=== PATIENT | female | born 1975 | race Caucasian/White ===

== ENCOUNTER 2022-09-23 06:14 | Emergency (ER) | payer OTHER ==
[2022-09-23] MEDS ORDERED: ONDANSETRON 4 MG/2 ML VIAL IVPB ONE (06:50)
[2022-09-23] MEDS ORDERED: SODIUM CHLORIDE 1,000 ML IV ONE (06:50)
[2022-09-23 07:20] VITALS: BMI 17.2
[2022-09-23 07:34] LABS: HEMOGLOBIN 12.4 G/dL (10.7-15.3); MCH 26.8 pg (25.7-33.7); MCHC 33.5 g/dl (32.0-36.0); MEAN CELL VOLUME 80.1 fl (80-96); MEAN PLT VOLUME 8.6 fl (7.5-11.1); PLATELET COUNT 194.2 10^3/uL (134-434); RBC 4.62 10^6/uL (3.60-5.2); RDW 15.5 % (11.6-15.6); WHITE BLOOD COUNT 10.4 10^3/uL (4.0-10.8)
[2022-09-23 07:40] LABS: ALBUMIN 4.4 g/dl (3.4-5.0); BILIRUBIN,TOTAL 1.1 mg/dl (0.2-1); CREATININE 0.7 mg/dl (0.55-1.3); TOT PROT 7.1 g/dl (6.4-8.2)
[2022-09-23] MEDS ORDERED: FAMOTIDINE 20 MG/50 ML IVPB 20 MG/50 ML MG IVPB ONE ×2 (08:58→09:03)
[2022-09-23] MEDS ORDERED: METOCLOPRAMIDE HCL INJECTION 10 MG/2 ML VIAL IVPUSH ONE (08:59)
[2022-09-23] MEDS ORDERED: ACETAMINOPHEN 325 MG TABLET (FP) PO ONE (08:59)
[2022-09-23] MEDS ORDERED: ACETAMINOPHEN 325 MG TABLET (FP) ONE (09:03)
[2022-09-23] MEDS ORDERED: METOCLOPRAMIDE HCL INJECTION 10 MG/2 ML VIAL ONE (09:03)
[2022-09-23 11:51] VITALS: BP 101/63; PULSE 91; RESP 16; TEMP 99.3
== END 2022-09-23 12:30 | disposition home or self-care (01) ==
LOC: FER 06:14
PROC: 3E033GC Introduction of Other Therapeutic Substance into Peripheral Vein, Percutaneous Approach (ICD-10-PCS; principal; 2022-09-23)
PROC: 3E033GC Introduction of Other Therapeutic Substance into Peripheral Vein, Percutaneous Approach (ICD-10-PCS; 2022-09-23)
PROC: 3E033GC Introduction of Other Therapeutic Substance into Peripheral Vein, Percutaneous Approach (ICD-10-PCS; 2022-09-23)
PROC: 3E033GC Introduction of Other Therapeutic Substance into Peripheral Vein, Percutaneous Approach (ICD-10-PCS; 2022-09-23)
PROC: 3E0337Z Introduction of Electrolytic and Water Balance Substance into Peripheral Vein, Percutaneous Approach (ICD-10-PCS; 2022-09-23)
DX: K52.9 Noninfective gastroenteritis and colitis, unspecified (principal); Z20.822 Contact with and (suspected) exposure to COVID-19
CPT/HCPCS: 0241U-QW; 36415; 80053; 85027; 99284-25

== ENCOUNTER 2023-08-31 07:53 | Emergency (ER) | payer OTHER ==
[2023-08-31 08:01] VITALS: BP 139/72; PULSE 70; RESP 18; TEMP 100.8; BMI 17.2
[2023-08-31] MEDS ORDERED: ONDANSETRON *ODT* 4 MG TABLET ONE (08:06)
[2023-08-31] MEDS: ONDANSETRON *ODT* 4 MG TABLET SL ONE (08:08)
[2023-08-31] MEDS ORDERED: ACETAMINOPHEN 325 MG TABLET (FP) ONE (09:17)
[2023-08-31] MEDS ORDERED: IBUPROFEN 400 MG TABLET (FP) PO ONE (09:17)
[2023-08-31] MEDS: ACETAMINOPHEN 325 MG TABLET (FP) PO ONE (09:21)
[2023-08-31] MEDS: IBUPROFEN 400 MG TABLET (FP) PO ONE (09:21)
== END 2023-08-31 09:59 | disposition home or self-care (01) ==
LOC: FER 07:53
DX: J10.1 Influenza due to other identified influenza virus with other respiratory manifestations (principal); M79.10 Myalgia, unspecified site; R09.81 Nasal congestion; R11.2 Nausea with vomiting, unspecified; R30.0 Dysuria; R07.0 Pain in throat; R05.9 Cough, unspecified; Z20.822 Contact with and (suspected) exposure to COVID-19
CPT/HCPCS: 0241U-QW; 81003; 87086; 99283-25; Q0162